=== PATIENT | male | born 1990 | race Caucasian/White ===

== ENCOUNTER 2017-12-12 16:36 | Emergency (ER) | payer MEDICAID ==
[~2017-12-12] VITALS: Ht 167.6 cm; Wt 68.0 kg
[2017-12-12 16:54] VITALS: Ht 167.6 cm; Wt 68.0 kg
[2017-12-12 18:00] VITALS: BP 142/84
== END 2017-12-12 18:00 | disposition home or self-care (01) ==
LOC: ED 16:36
DX: L60.0 Ingrowing nail (principal); R03.0 Elevated blood-pressure reading, without diagnosis of hypertension